=== PATIENT | male | born 1975 | race Asian ===

== ENCOUNTER 2021-08-05 22:48 | Emergency (ER) | payer OTHER ==
[~2021-08-05] VITALS: Ht 175.3 cm; Wt 80.0 kg
[2021-08-05 22:56] VITALS: BP 139/79
[2021-08-05] MEDS ORDERED: ACETAMINOPHEN 500 MG TABLET PO ONE (23:15)
== END 2021-08-06 00:31 | disposition home or self-care (01) ==
LOC: EMS 22:50
DX: S02.2XXA Fracture of nasal bones, initial encounter for closed fracture (principal); Y04.2XXA Assault by strike against or bumped into by another person, initial encounter; Y93.89 Activity, other specified; Y92.89 Other specified places as the place of occurrence of the external cause; Y99.8 Other external cause status
CPT/HCPCS: 70450; 70486; 99284